=== PATIENT | female | born 1995 | race Caucasian/White ===

== ENCOUNTER 2017-07-13 19:58 | Emergency (ER) | payer OTHER ==
[~2017-07-13] VITALS: Ht 152.4 cm; Wt 73.9 kg
[~2017-07-13 19:58] MED LIST: AMOXICILLIN 50500 MG PO; FLEXERIL 1010 MG/TAB PO; MOTRIN 800800 MG/TAB PO; PERCOCET 325 MG1 TA2 PO; PRENATAL1 TA1 PO; ZOFRAN 4MG T4 MG/TAB PO; ZOFRAN ODT4 MG PO; ZOLOFT 25MG25 MG
[2017-07-13 20:00] VITALS: BP 122/76; PULSE 108; TEMP 98
[2017-07-13] MEDS ORDERED: ZOLOFT 25MG25 MG PO (20:04)
== END 2017-07-13 21:15 | disposition home or self-care (01) ==
LOC: COL.ER 19:58
DX: O26.892 Other specified pregnancy related conditions, second trimester (principal); R10.2 Pelvic and perineal pain; Z90.49 Acquired absence of other specified parts of digestive tract; Z3A.15 15 weeks gestation of pregnancy; W01.0XXA Fall on same level from slipping, tripping and stumbling without subsequent striking against object, initial encounter

== ENCOUNTER → 2017-10-30 | Outpatient (CLI) | payer OTHER ==
[~2017-10-30] VITALS: Ht 152.4 cm; Wt 81.8 kg
[~2017-10-30] MED LIST changes: +FLAGYL500 MG PO; +PHENERGAN 25 TA25 MG PO; +PRENATAL MVI; +ZOLOFT 100MG100 MG PO
[2017-10-30 18:52] VITALS: BP 108/67; PULSE 95; TEMP 97.7
[2017-10-30 19:30] VITALS: BP 106/64; PULSE 111
[2017-10-30 20:02] VITALS: BP 109/61; PULSE 90; TEMP 97.9
== END ==
LOC: LDRO 18:36
DX: O26.893 Other specified pregnancy related conditions, third trimester (principal); Z3A.32 32 weeks gestation of pregnancy

== ENCOUNTER 2017-12-25 09:51 | Outpatient (CLI) | payer OTHER ==
[~2017-12-25] VITALS: Ht 154.9 cm; Wt 89.5 kg
[2017-12-25 10:10] VITALS: BP 112/66; PULSE 143; TEMP 98.3
[2017-12-25] MEDS ORDERED: ZOFRAN 4MG T4 MG/TAB PO (10:10)
[2017-12-25 10:30] VITALS: BP 118/73; PULSE 121
[2017-12-25 11:30] VITALS: BP 106/66; PULSE 93
[2017-12-26] MEDS ORDERED: PERCOCET 325 MG1 TA2 PO (12:59)
[2017-12-26] MEDS ORDERED: IBU800 M1 PO (12:59)
== END 2017-12-25 11:55 | disposition home or self-care (01) ==
LOC: LDRO 09:51 → LDR 10:00 → LDRO 11:55
DX: O21.2 Late vomiting of pregnancy (principal); O99.89 Other specified diseases and conditions complicating pregnancy, childbirth and the puerperium; Z3A.38 38 weeks gestation of pregnancy
CPT/HCPCS: OP; C9113; J2405; J7120

== ENCOUNTER 2017-12-25 13:14 | Inpatient (IN) | payer OTHER ==
[~2017-12-25] VITALS: Ht 154.9 cm; Wt 89.5 kg
[2017-12-25] VITALS (20 sets, daily range): BP systolic 95–126; BP diastolic 41–82; PULSE 98–133; TEMP 97.6
[2017-12-25 13:48] LABS: BASO % 0.3 % (0.0-2.0); EOS % 0.1 % (0-4.0); GRAN # 10.8 (1.4-6.5); GRAN % 85.7 % (42.2-75.2); HEMOGLOBIN 11.9 g/dl (12.5-16.0); LYMPH # 1.1 (1.2-3.4); LYMPH % 8.9 % (20.0-51.0); MEAN CELL VOLUME 90 fl (80.0-100.0); MEAN CORPUSCULAR HEMOGLOBIN 31 pg (27.0-31.0); MEAN CORPUSCULAR HGB CONC 34 g/dl (33.0-37.0); MEAN PLATELET VOLUME 10.1 fl (7.4-10.4); MONO # 0.5 (0.1-0.6); MONO % 4.3 % (1.7-9.3); PLATELET COUNT 261 K/mm3 (130-400); REDCELL DISTRIBUTION WIDTH-CV 13.2 % (11.5-14.5)
[2017-12-26 01:55] VITALS: BP 121/81; PULSE 91; TEMP 98.1
[2017-12-26 06:50] VITALS: BP 112/72; PULSE 90; TEMP 97.4
[2017-12-26] MEDS ORDERED: IBU800 M1 PO (12:59)
[2017-12-26] MEDS ORDERED: PERCOCET 325 MG1 TA2 PO (12:59)
[2017-12-26 16:14] VITALS: BP 115/77; PULSE 95; TEMP 97.5
[2017-12-26 19:25] VITALS: BP 122/78; PULSE 93; TEMP 98.2
[2017-12-27 07:20] VITALS: BP 112/71; PULSE 81; TEMP 97.5
== END 2017-12-27 11:35 | disposition home or self-care (01) | DRG 766 ==
LOC: LDRO 13:14 → OB 13:27 → LDR 13:27 → OB 12-26 07:21
PROVIDERS: Student in an Organized Health Care Education/Training Program
PROC: 10D00Z1 Extraction of Products of Conception, Low, Open Approach (ICD-10-PCS; principal; 2017-12-25)
PROC: 0UT70ZZ Resection of Bilateral Fallopian Tubes, Open Approach (ICD-10-PCS; 2017-12-25)
DX: O34.211 Maternal care for low transverse scar from previous cesarean delivery (principal); O99.344 Other mental disorders complicating childbirth; F41.9 Anxiety disorder, unspecified; Z30.2 Encounter for sterilization; Z3A.38 38 weeks gestation of pregnancy; Z37.0 Single live birth
CPT/HCPCS: J0171; J0690; J1885; J2175; J2250; J2405; J2590; J3010; J7120

== ENCOUNTER 2019-01-13 09:08 | Emergency (ER) | payer OTHER ==
[~2019-01-13] VITALS: Ht 152.4 cm; Wt 68.2 kg
[~2019-01-13 09:08] MED LIST changes: +IBU800 M1 PO
[2019-01-13 09:11] VITALS: BP 118/79; TEMP 98.9
[2019-01-13 10:04] VITALS: PULSE 61
== END 2019-01-13 10:02 | disposition home or self-care (01) ==
LOC: COL.ER 09:08
DX: S00.33XA Contusion of nose, initial encounter (principal); F32.9 Major depressive disorder, single episode, unspecified; F41.9 Anxiety disorder, unspecified; Z98.890 Other specified postprocedural states; W51.XXXA Accidental striking against or bumped into by another person, initial encounter

== ENCOUNTER 2024-01-12 07:31 | Emergency (ER) | payer SELFPAY ==
[~2024-01-12] VITALS: Ht 152.4 cm; Wt 86.4 kg
[2024-01-12 07:37] VITALS: TEMP 97.9
[2024-01-12 08:47] LABS: BASO # 0.1 K/mm3 (0.0-0.2); BASO % 0.6 % (0.0-2.0); EOS # 0.1 K/mm3 (0.0-0.7); EOS % 1.6 % (0.0-4.0); GRAN # 5.5 K/mm3 (1.4-6.5); HEMATOCRIT 41.2 % (37.0-47.0); HEMOGLOBIN 13.7 g/dl (12.5-16.0); LYMPH # 2.8 K/mm3 (1.2-3.4); LYMPH % 31.6 % (20.0-51.0); MEAN CELL VOLUME 91 fl (80.0-100.0); MEAN CORPUSCULAR HEMOGLOBIN 30 pg (27-31); MEAN CORPUSCULAR HGB CONC 33 g/dl (33.0-37.0); MEAN PLATELET VOLUME 8.5 fl (7.4-10.4); MONO # 0.5 K/mm3 (0.1-0.6); MONO % 5.1 % (1.7-9.3); PLATELET COUNT 351 K/mm3 (130-400); RED BLOOD COUNT 4.52 M/mm3 (4.10-5.30); REDCELL DISTRIBUTION WIDTH-CV 12.5 % (11.5-14.5)
[2024-01-12 09:10] LABS: ALANINE AMINOTRANSFERASE 19 U/L (0-55); ALBUMIN 3.4 g/dL (3.5-5.0); ALKALINE PHOSPHATASE 85 U/L (40-150); ANION GAP 9 mmol/L (7-16); AST,SGOT 19 U/L (5-34); BILIRUBIN,TOTAL 0.3 mg/dL (0.2-1.2); BLOOD UREA NITROGEN 7 mg/dL (7-19); CALCIUM 9.7 mg/dL (8.4-10.2); CHLORIDE 107 mEq/L (98-107); CREATININE, serum 0.78 mg/dL (0.57-1.11); GLUCOSE 105 mg/dL (70-99); LIPASE 48 U/L (8-78); POTASSIUM 3.7 mEq/L (3.5-4.5); SODIUM 137 mEq/L (136-145); TOTAL PROTEIN 7.1 g/dl (6.2-8.1)
[2024-01-12 09:17] LABS: TROPONIN-I < 0.010 ng/mL (0.00-0.033)
[2024-01-12 09:36] VITALS: BP 141/97; PULSE 71
== END 2024-01-12 09:40 | disposition home or self-care (01) ==
LOC: COL.ER 07:31
PROVIDERS: Emergency Medicine
DX: R07.89 Other chest pain (principal); F41.9 Anxiety disorder, unspecified; F17.200 Nicotine dependence, unspecified, uncomplicated